=== PATIENT | male | born 1955 | race Two or more races ===

== ENCOUNTER 2019-07-01 19:25 | Inpatient (IN) | payer MEDICARE, OTHER ==
[~2019-07-01] VITALS: Ht 203.2 cm; Wt 171.6 kg
--- NOTE | 2019-07-01 19:31 | NUR ---
PT BIB EMS C/O WORSENING BLE SWELLING WITH DRAINAGE. 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 OXYCODONE 5-325 GIVEN INCIDENT RESPONSE ANALYST 0702. PT AAOX4, VSS, BREATHING EVEN AND UNLABORED ON ROOM AIR W/ NAD NOTED. PT CONNECTED TO THE MONITOR AND POX.
--- NOTE | 2019-07-01 20:01 | NUR ---
NURSERY WORKER AT BEDSIDE FOR BLOOD DRAW
[2019-07-01 20:23] LABS: BASOPHILS # (AUTO) 0.1 /CMM (0.0-0.2); BASOPHILS % (AUTO) 1.1 % (0.0-2.0); EOSINOPHILS % (AUTO) 5.3 % (0.0-6.0); HEMATOCRIT 32 % (39-51); HEMOGLOBIN 9.5 g/dL (13.5-17.5); LYMPHOCYTES # (AUTO) 0.6 /CMM (0.8-4.8); LYMPHOCYTES % (AUTO) 7.2 % (20.0-44.0); MEAN CORPUSCULAR HGB CONC 30 g/dl (31.0-36.0); MEAN CORPUSCULAR VOLUME 84 fL (80-96); MONOCYTES # (AUTO) 0.7 /CMM (0.1-1.30); MONOCYTES % (AUTO) 9.2 % (2.0-12.0); NEUTROPHILS # (AUTO) 6.2 /CMM (1.8-8.9); NEUTROPHILS % (AUTO) 77.2 % (43.0-81.0); PLATELET COUNT (AUTO) 361 /CMM (150-450); RED BLOOD CELL COUNT(AUTO) 3.77 MIL/uL (4.5-6.0); WHITE BLOOD COUNT (AUTO) 8.1 K/uL (4.3-11.0)
[2019-07-01] MEDS ORDERED: PIPERACILLIN /TAZOBACTAM 3.375 G in IV D5W 50 ML IV ONE (20:30)
[2019-07-01] MEDS ORDERED: VANCOMYCIN 1 GM in IV D5W 250 ML IV ONE (20:30)
[2019-07-01] MEDS ORDERED: VANCOMYCIN 1 GM VIAL ONE (20:31)
[2019-07-01] MEDS ORDERED: PIPERACILLIN /TAZOBACTAM 3.375 G VIAL IV ONE (20:31)
[2019-07-01 20:33] LABS: CALCIUM, SERUM 8.3 mg/dL (8.5-10.1); CARBON DIOXIDE 38 mmol/L (21-32); CHLORIDE 100 mmol/L (98-107); GLUCOSE 109 mg/dL (74-106); SODIUM SERUM 140 mmol/L (136-145); UREA NITROGEN, BLOOD 13 mg/dL (7-18)
--- NOTE | 2019-07-01 20:33 | NUR ---
CALLED [facility]. WAS INFORMED THAT THE RN DID NOT KNOW THE NAME OF THE POWDER LOADER. UNABLE TO LOCATE ANYONE WHO WOULD KNOW THE NAME.
[2019-07-01 20:39] LABS: ALANINE AMINOTRANSFERASE 17 U/L (12-78); ALBUMIN 2.3 g/dL (3.4-5.0); ALKALINE PHOSPHATASE 122 U/L (46-116); ASPARTATE AMINOTRANSFERASE 20 U/L (15-37); BILIRUBIN,DIRECT 0.3 mg/dL (0.0-0.2); BILIRUBIN,TOTAL 0.6 mg/dL (0.2-1.0)
[2019-07-01 20:57] LABS: APPEARANCE,URINE Clear (CLEAR); BILIRUBIN,URINE Negative (NEGATIVE); BLOOD, URINE Trace-lysed Ery/uL (NEGATIVE); COLOR,URINE Yellow (YELLOW); KETONES,URINE Negative (NEGATIVE); LEUKOCYTE ESTERASE ,URINE Negative (NEGATIVE); NITRITE, URINE Negative (NEGATIVE); PROTEIN,URINE Negative (NEGATIVE); UGLUCOSE Negative (NEGATIVE); UROBILINOGEN,URINE 0.2 EU/dL (0.2)
[2019-07-01 20:58] LABS: BACTERIA,URINE None seen /HPF (None Seen); SQUAMOUS EPITHELIAL CELL,UR Rare /HPF (None Seen); WBC,URINE 0-2 /HPF (0-3)
[2019-07-01] MEDS ORDERED: IV NS 0.9% 1,000 ML BAG IV ONE (21:00)
--- NOTE | 2019-07-01 22:00 | NUR ---
REPORT GIVEN TO GUILLERMO CLINE
[2019-07-01 22:08] VITALS: BP 135/74
--- NOTE | 2019-07-01 22:10 | NUR ---
RN aidas[place]ennille admission notes Received Pt from ER nurse. Pt arrived at the unit with a gurney and vanco abx and fluids NS still running. Pt is 63 M YO with a diagnose of BLE Cellulitis by Dr. Dyer. Pt is alert and oriented x4. Respiration is normal. No SOB. No S/S of distress noted. IV sites L hand# 20 is clean, intact, patent and infuising well. Skin assessment is done, performed and pictures taken and placed in Pt's chart. BLE is swollen and red. 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 Pt's belongings is checked by PORTILLO Lay. reoriented Pt to the room and the use of call light button. Pt verbalized understanding. Safety precautions is maintained. Bed at low position, brakes locked, side rails upX3 and call light is within reach. Will continue to monitor.
[2019-07-01 22:30] VITALS: BP 135/74
[2019-07-01] MEDS ORDERED: ACETAMINOPHEN 325 MG TABLET PO PRN (22:30)
[2019-07-01] MEDS ORDERED: MAGNESIUM HYDROXIDE 30 ML UDC PO PRN (22:30)
[2019-07-01] MEDS ORDERED: ONDANSETRON HCL/PF 4 MG/2 ML VIAL IVP PRN (22:30)
[2019-07-01] MEDS ORDERED: Z GUARD REMEDY 2 OZ OINT TP PRN (22:30)
[2019-07-01] MEDS ORDERED: ZOLPIDEM TARTRATE 5 MG TABLET PO PRN (22:30)
[2019-07-01] MEDS ORDERED: diphenhydrAMINE HCL 50 MG/ML VIAL IV PRN (23:00)
[2019-07-01] MEDS: MORPHINE SULFATE INJ 2 MG/ML DISP.SYRIN IV PRN (23:10)
--- NOTE | 2019-07-01 23:10 | NUR ---
RN aidasurlogan notes Pt is complaining of pain on left and right legs. Administered morphine sulfate 2 mg/1ml IV push as ordered for pain 9/10 on pain scale per pt request. VS is stable. Will continue to monitor.
[2019-07-01] MEDS: IV NS 0.9% 1,000 ML IV PRN (23:24)
--- NOTE | 2019-07-01 23:40 | NUR ---
RN medsurg notes Received a call from lab that Pt's lactic acid is 2.3. Before was 2.2. Informed and contacted Dr. Dyer about Pt's lactic acid. Received order to repeat lactic acid in the morning. Order carried out.
[2019-07-01] MEDS: ATORVASTATIN 10 MG TABLET PO SCH (23:56)
[2019-07-01] MEDS: GABAPENTIN 300 MG CAPSULE PO SCH (23:56)
[2019-07-01] MEDS: CARVEDILOL 6.25 MG TABLET PO SCH (23:57)
[2019-07-01] MEDS: PIPERACILLIN /TAZOBACTAM 3.375 G in IV NS 0.9% 50 ML IV SCH (23:57)
--- NOTE | 2019-07-01 23:58 | NUR ---
RN altagracia notes Did not administered Zosyn 3.375 G IV. Pt received Zosyn prior to admission at ER at 2058. Charge nurse is aware and informed. Will continue to monitor
--- NOTE | 2019-07-02 03:00 | NUR ---
RN medsurlogan notes Wound care provided for right and lower legs. Cleaned with NS, pat dry, covered with abd pad and wrapped with kerlix. Wound care consult order. Pt tolerated activity well.
[2019-07-02 03:46] VITALS: BP 132/73
[2019-07-02] MEDS: MORPHINE SULFATE INJ 2 MG/ML DISP.SYRIN IV PRN ×4 (03:51→22:02)
[2019-07-02] MEDS ORDERED: PIPERACILLIN /TAZOBACTAM 3.375 G VIAL IV ONE (05:34)
[2019-07-02] MEDS: PIPERACILLIN /TAZOBACTAM 3.375 G in IV NS 0.9% 50 ML IV SCH ×3 (06:05→18:01)
--- NOTE | 2019-07-02 06:50 | NUR ---
RN medsurg closing notes Pt is resting in bed comfortably. Respiration is normal in room air. No SOB. No S/S of distress noted. Peripheral IV sites at L hand# 20 is clean, intact, patent and infusing well NS@ 75 ml/hr. VS is stable. Routine meds were given as ordered. Kept Pt clean, dry, warm and comfortable. All needs met and attended. Safety precautions is maintained. Bed at low position, brakes locked, side rails upX3 and call light is within reach. Will endorse to morning nurse for [place].
--- NOTE | 2019-07-02 07:25 | NUR ---
RN OPENING NOTES RECEIVED PATIENT IN BED ASLEEP, AROUSES EASILY. A/OX4, ABLE TO MAKE NEEDS KNOWN. NOT IN ANY FORM OF DISTRESS. NO SOB. NO S/S OF PAIN OR DISCOMFORT AT THIS TIME. IV ACCESS INTACT AND PATENT. KEPT PATIENT SAFE AND COMFORTABLE. NEEDS ATTENDED. BED IN LOW/LOCKED POSITION, SIDERAILS UPX2, CALL LIGHT IN REACH. WILL CONT TO MONITOR ACCORDINGLY.
[2019-07-02 07:50] LABS: BASOPHILS # (AUTO) 0.1 /CMM (0.0-0.2); EOSINOPHILS % (AUTO) 4.7 % (0.0-6.0); HEMATOCRIT 32 % (39-51); HEMOGLOBIN 9.9 g/dL (13.5-17.5); LYMPHOCYTES # (AUTO) 0.5 /CMM (0.8-4.8); LYMPHOCYTES % (AUTO) 5.3 % (20.0-44.0); MEAN CORPUSCULAR HGB CONC 31 g/dl (31.0-36.0); MEAN CORPUSCULAR VOLUME 82 fL (80-96); MONOCYTES # (AUTO) 0.6 /CMM (0.1-1.30); MONOCYTES % (AUTO) 7.2 % (2.0-12.0); NEUTROPHILS # (AUTO) 7.2 /CMM (1.8-8.9); NEUTROPHILS % (AUTO) 81.8 % (43.0-81.0); PLATELET COUNT (AUTO) 386 /CMM (150-450); RED BLOOD CELL COUNT(AUTO) 3.91 MIL/uL (4.5-6.0); WHITE BLOOD COUNT (AUTO) 8.7 K/uL (4.3-11.0)
[2019-07-02] MEDS ORDERED: FEE PK DOSING 1 MIN EA MC ONE (07:57)
[2019-07-02 08:00] VITALS: BP 136/78
[2019-07-02 08:00] LABS: CALCIUM, SERUM 8.1 mg/dL (8.5-10.1); CREATININE 0.9 mg/dL (0.6-1.3); MAGNESIUM 1.8 mg/dL (1.8-2.4); PHOSPHORUS 3.4 mg/dL (2.5-4.9); POTASSIUM 4.1 mmol/L (3.5-5.1)
[2019-07-02] MEDS ORDERED: GABA-534 PO (08:06)
[2019-07-02] MEDS ORDERED: MENT113O12 TD (08:06)
[2019-07-02] MEDS ORDERED: MULT-447 PO (08:06)
[2019-07-02] MEDS ORDERED: ERGO400C PO (08:06)
[2019-07-02] MEDS ORDERED: PANT40TA2 PO (08:06)
[2019-07-02] MEDS ORDERED: FURO-144 PO (08:06)
[2019-07-02] MEDS ORDERED: ATOR10TA PO (08:06)
[2019-07-02] MEDS ORDERED: DIGO250T PO (08:06)
[2019-07-02] MEDS ORDERED: CARV6.252 PO (08:06)
[2019-07-02] MEDS ORDERED: GUAI100S11 PO (08:06)
[2019-07-02] MEDS ORDERED: IPRA3AMP23 IH (08:06)
[2019-07-02] MEDS ORDERED: HYDR28.32 TP (08:06)
[2019-07-02] MEDS ORDERED: OXYC-128 PO (08:06)
[2019-07-02] MEDS ORDERED: HYDR59LO5 TP (08:06)
[2019-07-02] MEDS ORDERED: LEVO50TA8 PO (08:06)
[2019-07-02] MEDS ORDERED: ASCO-352 PO (08:06)
[2019-07-02] MEDS ORDERED: SENN1TAB77 PO (08:06)
[2019-07-02] MEDS ORDERED: ACID1TAB12 PO (08:06)
[2019-07-02] MEDS ORDERED: AMIN30LI2 PO (08:06)
[2019-07-02] MEDS ORDERED: ACET-868 PO (08:06)
[2019-07-02] MEDS: CHOLECALCIFEROL 1,000 UNIT TABLET (VIT D3) PO SCH (08:37)
[2019-07-02] MEDS: GABAPENTIN 300 MG CAPSULE PO SCH ×3 (08:37→16:58)
[2019-07-02] MEDS: CARVEDILOL 6.25 MG TABLET PO SCH ×2 (08:38→21:10)
[2019-07-02] MEDS: ASCORBIC ACID 500 MG TABLET PO SCH (08:38)
[2019-07-02] MEDS: PANTOPRAZOLE 40 MG TABLET.DR PO SCH (08:41)
[2019-07-02] MEDS: APIXABAN 2.5 MG TABLET PO SCH ×2 (08:45→16:59)
[2019-07-02] MEDS: VANCOMYCIN 1.5 GM in IV D5W 500 ML IV SCH ×2 (08:45→21:00)
[2019-07-02] MEDS ORDERED: PIPERACILLIN /TAZOBACTAM 3.375 G in IV D5W 50 ML IV SCH (12:00)
[2019-07-02] MEDS: HYDROCODONE/APAP 5/325MG 1 EACH TABLET PO PRN (12:31)
[2019-07-02] MEDS: DIGOXIN 0.25 MG TABLET PO SCH (12:40)
[2019-07-02 16:00] VITALS: BP 140/68
--- NOTE | 2019-07-02 19:30 | NUR ---
RN CLOSING NOTES PATIENT IN STABLE CONDITION. ALL NEEDS ATTENDED AND PROVIDED. ALL DUE MEDS GIVEN ORDERED. KEPT PATIENT SAFE AND COMFORTABLE. WOUND CARE RENDERED. BED IN LOW/LOCKED POSITION, SIDERAILS UPX2, CALL LIGHT IN REACH. ENDORSED TO NIGHT RN FOR [place].
[2019-07-02 20:00] VITALS: BP 136/84
[2019-07-02] MEDS: IV NS 0.9% 1,000 ML IV PRN (21:01)
[2019-07-02] MEDS: ATORVASTATIN 10 MG TABLET PO SCH (21:09)
[2019-07-03] MEDS: PIPERACILLIN /TAZOBACTAM 3.375 G in IV NS 0.9% 50 ML IV SCH ×4 (00:13→18:08)
[2019-07-03] MEDS: HYDROCODONE/APAP 5/325MG 1 EACH TABLET PO PRN ×3 (01:15→20:12)
[2019-07-03] MEDS: MORPHINE SULFATE INJ 2 MG/ML DISP.SYRIN IV PRN ×3 (02:38→22:30)
[2019-07-03 07:45] LABS: CALCIUM, SERUM 8.2 mg/dL (8.5-10.1); CREATININE 0.8 mg/dL (0.6-1.3); POTASSIUM 4.1 mmol/L (3.5-5.1)
[2019-07-03 08:00] VITALS: BP 128/73
[2019-07-03] MEDS: PANTOPRAZOLE 40 MG TABLET.DR PO SCH (08:00)
[2019-07-03] MEDS: CARVEDILOL 6.25 MG TABLET PO SCH ×2 (08:00→21:49)
[2019-07-03] MEDS: GABAPENTIN 300 MG CAPSULE PO SCH ×3 (08:01→17:01)
[2019-07-03] MEDS: VANCOMYCIN 1.5 GM in IV D5W 500 ML IV SCH (08:02)
[2019-07-03] MEDS: ASCORBIC ACID 500 MG TABLET PO SCH (08:02)
[2019-07-03] MEDS: CHOLECALCIFEROL 1,000 UNIT TABLET (VIT D3) PO SCH (08:02)
--- NOTE | 2019-07-03 08:09 | NUR ---
RN NOTES HELD HAYDER TODAY. FOR EXCISIONAL WOUND DEBRIDEMENT OF BLE TOMORROW MORNING IN OPERATING ROOM.
[2019-07-03] MEDS: APIXABAN 2.5 MG TABLET PO SCH ×2 (08:13→16:07)
[2019-07-03] MEDS: DIGOXIN 0.25 MG TABLET PO SCH (12:07)
[2019-07-03 16:00] VITALS: BP 132/82
--- NOTE | 2019-07-03 19:45 | NUR ---
RN NOTES RECEIVED PT. AWAKE SITTING IN THE CHAIR, A/OX3, IV LINE WAS ACCIDENTALLY PULLED OUT, ASKING FOR PAIN MEDICATION , NO SOB, CALL LIGHT WITHIN REACH, SIDERAILSUPX2, CONTINUE TO MONITOR
[2019-07-03 20:00] VITALS: BP 132/87
[2019-07-03] MEDS: VANCOMYCIN 1.25 GM in IV D5W 250 ML IV SCH (20:02)
[2019-07-03] MEDS: IV NS 0.9% 1,000 ML IV PRN (20:03)
--- NOTE | 2019-07-03 20:12 | NUR ---
RN NOTES COMPLAINED OF BILATERAL LOWER EXTREMITIES- NORCO 5/325MG PO GIVEN ORDERED, V/S STABLE
--- NOTE | 2019-07-03 20:30 | NUR ---
RN NOTES NEW IV LINE INSERTED ON THE LEFT FOREARM GAUGE 20
[2019-07-03] MEDS: ATORVASTATIN 10 MG TABLET PO SCH (21:49)
--- NOTE | 2019-07-03 22:41 | NUR ---
RN NOTES COMPLAINED OF BILATERAL LOWER EXTREMITIES PAIN- MORPHINE 2 MG IV GIVEN ORDERED, V/S STABLE
[2019-07-03 22:55] VITALS: BP 132/87
[2019-07-04] MEDS: PIPERACILLIN /TAZOBACTAM 3.375 G in IV NS 0.9% 50 ML IV SCH ×5 (00:34→23:48)
[2019-07-04] MEDS: MORPHINE SULFATE INJ 2 MG/ML DISP.SYRIN IV PRN ×3 (04:03→21:34)
--- NOTE | 2019-07-04 04:13 | NUR ---
RN NOTES COMPLAINED OF BLE PAIN- MORPHINE 2 MG IV GIVEN ORDERED, V/S STABLE
--- NOTE | 2019-07-04 06:38 | NUR ---
RN NOTES AWAKE, NO SOB, DENIES PAIN AT THIS TIME, CALL [facility] WITHIN REACH, SIDERAILSUPX2, PT. NEEDS ATTENDED
[2019-07-04] MEDS ORDERED: FAMOTIDINE/PF INJ 20 MG/2 ML VIAL IV ONE (06:41)
[2019-07-04] MEDS ORDERED: FENTANYL PF 250MCG/5ML AMPUL ONE (06:41)
[2019-07-04] MEDS ORDERED: MIDAZOLAM HCL 2 MG/2ML VIAL ONE ×3 (06:41→09:33)
[2019-07-04 07:04] LABS: CALCIUM, SERUM 8.5 mg/dL (8.5-10.1); CREATININE 0.9 mg/dL (0.6-1.3); POTASSIUM 4.5 mmol/L (3.5-5.1)
[2019-07-04] MEDS ORDERED: BUPIVACAINE 0.5 % PF 150 MG/30 ML VIAL ONE (07:04)
[2019-07-04] MEDS ORDERED: ANESTHESIA TRAY IN PYXIS 1 EA TRAY MC ONE (07:04)
[2019-07-04] MEDS ORDERED: LIDOCAINE HCL/PF 1% 30 ML SDV ONE (07:05)
[2019-07-04] MEDS ORDERED: BUPIVACAINE MPF 0.5% W/EPI INJ 30 ML VIAL ONE (07:05)
[2019-07-04] MEDS: PANTOPRAZOLE 40 MG TABLET.DR PO SCH (07:30)
--- NOTE | 2019-07-04 07:33 | NUR ---
RN OPENING NOTES Patient received on RA, no sob noted, patient to surgery at this time.
[2019-07-04] MEDS: GABAPENTIN 300 MG CAPSULE PO SCH ×3 (09:00→16:06)
[2019-07-04] MEDS: ASCORBIC ACID 500 MG TABLET PO SCH (09:00)
[2019-07-04] MEDS: CHOLECALCIFEROL 1,000 UNIT TABLET (VIT D3) PO SCH (09:00)
[2019-07-04] MEDS: CARVEDILOL 6.25 MG TABLET PO SCH ×2 (09:00→21:28)
[2019-07-04] MEDS: APIXABAN 2.5 MG TABLET PO SCH ×2 (09:00→16:06)
[2019-07-04] MEDS: VANCOMYCIN 1.25 GM in IV D5W 250 ML IV SCH ×2 (10:22→19:55)
[2019-07-04] MEDS: DIGOXIN 0.25 MG TABLET PO SCH (13:08)
[2019-07-04 16:00] VITALS: BP 129/88
--- NOTE | 2019-07-04 19:17 | NUR ---
RN CLOSING NOTES Patient remains on 2 l nasal cannula, no sob noted, patient denies pain at this time. Patient sits on his bed at times, even though he is reminded that he should have his feet elevated. All medications given. Bed at the lowest setting, call light within reach, side rails up x2. Will give report to NOC RN for [place] bedside.
--- NOTE | 2019-07-04 19:25 | NUR ---
MS RN NOTES RECEIVED A/O X4,SITTING ON EDGE OF BED,S/O DEBRIDEMENT ON BOTH LOWER EXTREMITIES.DRESSING INTACT AND DRY.ENCOURAGED TO ELEVATE BLE ORDERED.IVF NS 75ML/HR RATE IN PROGRESS,SITE PATENT,LFA #20.CALL LIGHT IN REACH,NEEDS ANTICIPATED.PAIN TOLERABLE AT THE MOMENT.
[2019-07-04 20:00] VITALS: BP 132/89
[2019-07-04] MEDS: ATORVASTATIN 10 MG TABLET PO SCH (21:29)
--- NOTE | 2019-07-04 21:34 | NUR ---
MS RN NOTES PAIN MANAGEMENT C/O BLE PAIN 8/10 ON PAIN SCALE, MEDICATED WITH MORPHINE 2MG IV ORDERED.
--- NOTE | 2019-07-04 21:59 | NUR ---
MS RN NOTES ON BED THIS TIME,BILATERAL LOWER LEG ELEVATED ON PILLOWS
--- NOTE | 2019-07-05 01:30 | NUR ---
MS RN NOTES AWAKE,HAVING EPISODE OF DRY COUGH,PATIENT CLAIMED ITS HARD TO EXPECTORATE MUCUS. HOSPITALIST KALPESH BLACK MADE AWARE WITH ORDER TO GIVEN MUCINEX 600MG PO NOW THEN Q 12 HOURS
[2019-07-05] MEDS: GUAIFENESIN LA 600 MG TABLET.SA PO SCH ×3 (01:48→21:10)
--- NOTE | 2019-07-05 01:48 | NUR ---
MS RN NOTES MEDICATED WITH MUCINEX 600MG PO ORDERED.
--- NOTE | 2019-07-05 02:00 | NUR ---
MS RN NOTES CHARGE NURSE LOGAN MADE AWARE.
[2019-07-05] MEDS: MORPHINE SULFATE INJ 2 MG/ML DISP.SYRIN IV PRN (02:09)
--- NOTE | 2019-07-05 02:09 | NUR ---
MS RN NOTES DENYING PAIN BUT HE'S SO RESTLESS,GASPING FOR BREATH.KEEP ON SAYING HE'S OKAY.O2 AT 3L/NC IN USED.O2 SAT GOES UP TO 97 AND SUDDENLY GOES TO 83.PATIENT WITH KNOWN HX OF CHF. MEDICATED WITH MORPHINE 2MG IV ORDERED.WILL CONTINUE TO MONITOR STATUS.
--- NOTE | 2019-07-05 02:17 | NUR ---
MS RN NOTES BLOOD SUGAR THIS TIME 75.
--- NOTE | 2019-07-05 02:38 | NUR ---
MS RN NOTES CALM AT THIS TIME.LATEST BP 108/55,PULSE 64.
--- NOTE | 2019-07-05 02:50 | NUR ---
MS RN NOTES SEEN BY RT,RE EVALUATE O2 SAT ON LEFT FINGERS,O2 SAT 98-99 AT 3L/NC
--- NOTE | 2019-07-05 02:53 | NUR ---
MS RN NOTES SEEN ED ICU,EVALUATE PATIENT STATUS.O2 SAT 97 % ON 3 L/NC.MADE AWARE OF BLOOD PRESSURE.SAYS PATIENT IS STABLE.CONTINUE TO MONITOR STATUS.
--- NOTE | 2019-07-05 03:08 | NUR ---
MS RN NOTES SCRATCHING HIS RIGHT ARMS,CLAIMED SO ITCHY.MEDICATED WITH BENADRYL 25MG IV ORDERED.
--- NOTE | 2019-07-05 04:00 | NUR ---
MS RN NOTES ON SITTING POSITION THIS TIME.CANT STAY LAYING DOWN FOR LONGER PERIOD OF TIME.BLE ELEVATED ON PILLOWS
--- NOTE | 2019-07-05 05:30 | NUR ---
MS RN NOTES LAYING ON HIS LEFT SIDE THIS TIME,CLAIMED HE FEELS BETTER.IV ABX HUNG
[2019-07-05] MEDS: PIPERACILLIN /TAZOBACTAM 3.375 G in IV NS 0.9% 50 ML IV SCH ×3 (05:31→17:12)
[2019-07-05] MEDS: IV NS 0.9% 1,000 ML IV PRN (05:42)
--- NOTE | 2019-07-05 06:14 | NUR ---
MS RN NOTES AWAKE,SITTING ON EDGE OF BED,FEELING BETTER,NO SOB, O2 USED ON AND OFF,O2 SAT 97%.IV ABX TOLERATED,IVF HOLD FOR AWHILE DUE TO EPISODE OF SOB EARLIER.DRESSING TO BLE INTACT AND DRY.NO FALL,NO INJURY.CALL LIGHT IN REAC,NEEDS ATTENDED.WILL ENDORSE NICK DAY NURSE FOR [place].
--- NOTE | 2019-07-05 07:30 | NUR ---
RN OPENING NOTES RECEIVED PATIENT IN BED RESTING COMFORTABLY IN MODERATE HIGH BACK REST. A/O X4. NO SIGNS OF DISTRESS NOTED AT THIS TIME. IV FLUIDS ON LEFT FA #20 WITH NS RUNNING @ 75ML/HR. PATENT AND INTACT. SAFETY MEASURES IN PLACE, BED IN LOW LOCKED POSITION WITH SIDE RAILS UP X2. CALL LIGHT WITHIN EASY REACH. WILL CONTINUE TO MONITOR.
[2019-07-05 07:50] LABS: CALCIUM, SERUM 8.5 mg/dL (8.5-10.1); POTASSIUM 4.8 mmol/L (3.5-5.1)
[2019-07-05 08:00] VITALS: BP 148/93
[2019-07-05] MEDS: CHOLECALCIFEROL 1,000 UNIT TABLET (VIT D3) PO SCH (08:44)
[2019-07-05] MEDS: GABAPENTIN 300 MG CAPSULE PO SCH ×3 (08:44→16:29)
[2019-07-05] MEDS: CARVEDILOL 6.25 MG TABLET PO SCH ×2 (08:44→21:10)
[2019-07-05] MEDS: ASCORBIC ACID 500 MG TABLET PO SCH (08:44)
[2019-07-05] MEDS: VANCOMYCIN 1.25 GM in IV D5W 250 ML IV SCH ×2 (08:47→20:06)
[2019-07-05] MEDS: APIXABAN 2.5 MG TABLET PO SCH ×2 (08:48→16:28)
[2019-07-05] MEDS: PANTOPRAZOLE 40 MG TABLET.DR PO SCH (08:51)
[2019-07-05] MEDS: DIGOXIN 0.25 MG TABLET PO SCH (12:14)
[2019-07-05 16:00] VITALS: BP 134/77
--- NOTE | 2019-07-05 18:45 | NUR ---
RN CLOSING NOTES PATIENT IN BED RESTING COMFORTABLY IN MODERATE HIGH BACK REST. A/O X3. NO SIGNS OF DISTRESS NOTED THROUGHOUT THE SHIFT. IV FLUIDS ON LEFT FA #20 WITH NS @75ML/HR. PATENT AND INTACT. SAFETY MEASURES IN PLACE, BED IN LOW LOCKED POSITION WITH SIDE RAILS UP X2. CALL LIGHT WITHIN EASY REACH. WILL ENDORSE TO BRAKE RIDER NURSE FOR [place].
--- NOTE | 2019-07-05 19:30 | NUR ---
MS RN NOTES RECEIVED SITTING ON EDGE OF BED,A/O X3,SALINE LOCK LFA INTACT AND PATENT.S/P DEBRIDEMENT ON BLE YESTERDAY,DRESSING INTACT AND DRY.ELEVATED ON PILLOWS.NOTED DRYNESS ON RIGHT ARM AND PATIENT HAS A TENDENCY TO SCRATCH.WILL MEDICATE.MONITOR FOR PAIN,CALL LIGHT IN REACH,NEEDS ANTICIPATED.
[2019-07-05 20:00] VITALS: BP 140/76
[2019-07-05] MEDS ORDERED: LEVOFLOXACIN (750 MG) 750 MG TABLET PO SCH (20:00)
[2019-07-05] MEDS: CEFEPIME 1 GM in IV D5W 50 ML IV SCH (20:00)
[2019-07-05] MEDS: ATORVASTATIN 10 MG TABLET PO SCH (21:09)
[2019-07-05] MEDS ORDERED: CEFEPIME 1 GM VIAL ONE (21:18)
--- NOTE | 2019-07-06 00:39 | NUR ---
MS RN NOTES AWAKE,MEDICATED WITH AMBIEN 5MG PO ORDERED
--- NOTE | 2019-07-06 02:30 | NUR ---
MS RN NOTES SLEEPING,KEPT WARM AND COMFORTABLE.
[2019-07-06] MEDS: MORPHINE SULFATE INJ 2 MG/ML DISP.SYRIN IV PRN (04:30)
--- NOTE | 2019-07-06 04:30 | NUR ---
MS RN NOTES PAIN MANAGEMENT C/O OF PAIN 8/10 ON PAIN SCALE ON BOTH LOWER EXTREMITIES.MEDICATED WITH MORPHINE 2MG IV ORDERED.
--- NOTE | 2019-07-06 05:00 | NUR ---
MS RN NOTES DRESSING CHANGE DONE ON BOTH LOWER LEG,FOLLOWED DOCTORS ORDER.WOUND CULTURE SPECIMEN OBTAINED,SENT TO LAB.
--- NOTE | 2019-07-06 06:25 | NUR ---
MS RN NOTES SLEEPING,PAIN MANAGEMENT EFFECTIVE,BLE KEPT ELEVATED ON PILLOWS.SALINE LOCK REMAINS PATENT.FOR D/C PLANNING AWAITING WOUND CULTURE RESULT.NO EPISODE OF SOB,CALL LIGHT IN REACH,NEEDS ATTENDED.WILL ENDORSE TO DAY NURSE FOR [place].
[2019-07-06] MEDS: VANCOMYCIN 1.25 GM in IV D5W 250 ML IV SCH (07:17)
[2019-07-06] MEDS: IV NS 0.9% 1,000 ML IV PRN (07:29)
[2019-07-06 08:00] VITALS: BP 138/63
--- NOTE | 2019-07-06 08:00 | NUR ---
RN NOTES VANCO TROUGH RESULTS: 22, CALLED THE LAB AND WAS TOLD TO HOLD AM DOSE OF VANCOMYCIN.
[2019-07-06] MEDS: CHOLECALCIFEROL 1,000 UNIT TABLET (VIT D3) PO SCH (08:09)
[2019-07-06] MEDS: ASCORBIC ACID 500 MG TABLET PO SCH (08:09)
[2019-07-06] MEDS: GUAIFENESIN LA 600 MG TABLET.SA PO SCH ×2 (08:09→20:47)
[2019-07-06] MEDS: GABAPENTIN 300 MG CAPSULE PO SCH ×3 (08:09→16:04)
[2019-07-06] MEDS: PANTOPRAZOLE 40 MG TABLET.DR PO SCH (08:09)
[2019-07-06] MEDS: CARVEDILOL 6.25 MG TABLET PO SCH ×2 (08:10→20:48)
[2019-07-06] MEDS: APIXABAN 2.5 MG TABLET PO SCH ×2 (08:14→16:06)
[2019-07-06] MEDS: CEFEPIME 1 GM in IV D5W 50 ML IV SCH ×2 (08:24→16:05)
[2019-07-06 08:32] LABS: CALCIUM, SERUM 8.7 mg/dL (8.5-10.1); CREATININE 0.9 mg/dL (0.6-1.3); POTASSIUM 5.1 mmol/L (3.5-5.1)
[2019-07-06] MEDS: DIGOXIN 0.25 MG TABLET PO SCH (12:33)
[2019-07-06 16:00] VITALS: BP 125/90
[2019-07-06] MEDS ORDERED: MEROPENEM 1,000 MG in IV NS 0.9% 50 ML IV SCH (16:30)
[2019-07-06] MEDS: MEROPENEM 1 G in IV NS 0.9% 100 ML IV SCH (17:18)
--- NOTE | 2019-07-06 18:41 | NUR ---
RN CLOSING NOTES PATIENT IN BED RESTING COMFORTABLY IN MODERATE HIGH BACK REST. A/O X3. NO SIGNS OF DISTRESS NOTED THROUGHOUT THE SHIFT. IV FLUIDS ON LEFT FA #20 WITH NS @75ML/HR. PATENT AND INTACT. SAFETY MEASURES IN PLACE, BED IN LOW LOCKED POSITION WITH SIDE RAILS UP X2. CALL LIGHT WITHIN EASY REACH. WILL ENDORSE TO HEAVY FORGING MACHINE OPERATOR NURSE FOR [place].
--- NOTE | 2019-07-06 19:10 | NUR ---
RN OPENING NOTES Received patient A/O x4, awake sitting on bed. With peripheral IV line with IVF infusing well as ordered. On RA, no SOB/respiratory distress noted at this time. Patient denies any discomfort. Kept patient clean, dry and comfortable. Call light within easy reach. On fall and aspiration precautions. Will continue to monitor accordingly.
[2019-07-06] MEDS: VANCOMYCIN 1 GM in IV D5W 250ml IV SCH (20:37)
[2019-07-06 21:20] VITALS: BP 148/117
[2019-07-06] MEDS: ATORVASTATIN 10 MG TABLET PO SCH (21:42)
[2019-07-07 02:56] VITALS: BP 148/117
[2019-07-07] MEDS: MEROPENEM 1 G in IV NS 0.9% 100 ML IV SCH ×2 (04:57→17:05)
--- NOTE | 2019-07-07 07:00 | NUR ---
MS/RN Opening Note Received patient in bed, AO x 4, able to responds all stimuli. Respiratory even/unlabored and in room air, no SOB or respiratory distress observed. Skin is warm to touch, warehouse supervisor 3rd shift changed dressing on bilateral legs. Kept lower bed position with elevated HOB. Call light within reach, will continue to monitor.
--- NOTE | 2019-07-07 07:27 | NUR ---
RN CLOSING NOTES Patient asleep, easily awaken. On O2 inhalation PRM to keep saturation >92%. No new complaints made within the shift. Wound dressing done, tolerated well. All nursing needs attended. Due meds given as ordered. Kept on bed clean, dry and comfortable. Call light within easy reach. Endorsed.
[2019-07-07 07:39] LABS: CALCIUM, SERUM 8.5 mg/dL (8.5-10.1); CREATININE 0.9 mg/dL (0.6-1.3); POTASSIUM 5.2 mmol/L (3.5-5.1)
[2019-07-07] MEDS: VANCOMYCIN 1 GM in IV D5W 250ml IV SCH (07:55)
[2019-07-07] MEDS: PANTOPRAZOLE 40 MG TABLET.DR PO SCH (07:55)
[2019-07-07] MEDS: IV NS 0.9% 1,000 ML IV PRN (07:58)
[2019-07-07 08:00] VITALS: BP 134/71
[2019-07-07] MEDS: GUAIFENESIN LA 600 MG TABLET.SA PO SCH (09:50)
[2019-07-07] MEDS: CARVEDILOL 6.25 MG TABLET PO SCH (09:50)
[2019-07-07] MEDS: ASCORBIC ACID 500 MG TABLET PO SCH (09:50)
[2019-07-07] MEDS: CHOLECALCIFEROL 1,000 UNIT TABLET (VIT D3) PO SCH (09:50)
[2019-07-07] MEDS: GABAPENTIN 300 MG CAPSULE PO SCH ×3 (09:50→17:05)
[2019-07-07] MEDS: APIXABAN 2.5 MG TABLET PO SCH ×2 (12:20→18:31)
[2019-07-07] MEDS: MORPHINE SULFATE INJ 2 MG/ML DISP.SYRIN IV PRN ×2 (13:01→15:51)
[2019-07-07] MEDS: DIGOXIN 0.25 MG TABLET PO SCH (13:04)
[2019-07-07] MEDS ORDERED: APIX2.5T PO (15:41)
[2019-07-07] MEDS ORDERED: MERO1VIA23 IV (15:41)
[2019-07-07] MEDS ORDERED: RXVAN XX (15:41)
[2019-07-07 16:00] VITALS: BP 150/60
--- NOTE | 2019-07-07 16:30 | NUR ---
Given report Colette Calvo/Darline LI
--- NOTE | 2019-07-07 19:15 | NUR ---
[facility] arrived to pharmacy picking technician patient, and given report. Pt in stable condition, skin is warm to touch, clean/dry. Respiratory even and unlabored. Pt left facility accompanied.
== END 2019-07-07 19:17 | DRG 580 ==
LOC: ER 19:26 → MED 21:15
PROVIDERS: ADMIT Nurse Practitioner Acute Care; ATTEND Hospitalist
PROC: 0KBW0ZZ Excision of Left Foot Muscle, Open Approach (ICD-10-PCS; principal; 2019-07-04)
PROC: 0KBV0ZZ Excision of Right Foot Muscle, Open Approach (ICD-10-PCS; 2019-07-04)
DX: L03.115 Cellulitis of right lower limb (principal); D68.59 Other primary thrombophilia; E44.0 Moderate protein-calorie malnutrition; L97.919 Non-pressure chronic ulcer of unspecified part of right lower leg with unspecified severity; E87.2 Acidosis; L03.116 Cellulitis of left lower limb; I48.91 Unspecified atrial fibrillation; E03.9 Hypothyroidism, unspecified; G40.909 Epilepsy, unspecified, not intractable, without status epilepticus; G62.9 Polyneuropathy, unspecified; I25.10 Atherosclerotic heart disease of native coronary artery without angina pectoris; I27.20 Pulmonary hypertension, unspecified; E78.5 Hyperlipidemia, unspecified; I87.2 Venous insufficiency (chronic) (peripheral); I87.8 Other specified disorders of veins; L97.529 Non-pressure chronic ulcer of other part of left foot with unspecified severity; I11.0 Hypertensive heart disease with heart failure; I50.9 Heart failure, unspecified; Z87.891 Personal history of nicotine dependence; Z87.11 Personal history of peptic ulcer disease; Z79.01 Long term (current) use of anticoagulants; G89.29 Other chronic pain; R26.9 Unspecified abnormalities of gait and mobility; I73.9 Peripheral vascular disease, unspecified; D63.8 Anemia in other chronic diseases classified elsewhere; Z74.09 Other reduced mobility; Z79.899 Other long term (current) drug therapy; Z79.890 Hormone replacement therapy; E66.01 Morbid (severe) obesity due to excess calories; F10.21 Alcohol dependence, in remission; I89.0 Lymphedema, not elsewhere classified; M20.40 Other hammer toe(s) (acquired), unspecified foot; L30.9 Dermatitis, unspecified; M85.80 Other specified disorders of bone density and structure, unspecified site
CPT/HCPCS: 36415; 36569; 71045-TC; 73630-TC; 80048-TC; 80061-TC; 80076-TC; 80202-TC; 81000-TC; 82962-TC; 83605-TC; 83735-TC; 84100-TC; 84484-TC; 85025-TC; 85652-TC; 85730-TC; 87040-TC; 87070-TC; 87081-TC; 87086-TC; 87186-TC; 93970-TC; 94799-TC; 97112-TC; 97530-TC; A4216; A6253; A6403; G0378; J0690; J0692; J1200; J2185; J2250; J2270; J2405; J2543; J2704; J2765; J3010; J3370; J3490; J7030; J7060